=== PATIENT | male | born 1955 | race Caucasian/White ===

== ENCOUNTER → 2018-11-25 | Outpatient (REF) ==
--- NOTE | 2018-11-25 17:58 | REP ---
PARTIAL LUMBAR SPINE, THREE VIEWS: HISTORY: Degenerative disc disease. There is no acute fracture. The lumbar intervertebral discs are decreased in height consistent with disc degeneration. Osteophytes are present throughout the lumbar spine. There is sclerosis of the L4-5 and L5-S1 facets. There are 4 mm of grade 1 spondylolisthesis of L4 on 5. IMPRESSION:Degenerative change as described above. Electronically Signed by Krystian Cain MD 11/26/2018 08:25 A
--- NOTE | 2018-11-25 19:45 | REP ---
REASON: Disability determination. PRIORS: None. FINDINGS: Three views of the shoulder were performed. The acromioclavicular and glenohumeral relationships are within normal limits. There is no acute fracture or destructive osseous lesion. Electronically Signed by Derik Ramey DO 11/26/2018 11:56 A
== END ==
LOC: M SMT 14:05
PROVIDERS: ATTEND Internal Medicine
DX: M51.36 Other intervertebral disc degeneration, lumbar region (principal); M51.37 Other intervertebral disc degeneration, lumbosacral region

== ENCOUNTER → 2018-12-05 | Outpatient (REF) | payer OTHER ==
[2018-12-05 14:51] LABS: RUBELLA IgG QUALITATIVE IMMUNE (IMMUNE)
[2018-12-06 10:37] LABS: MUMPS VIRUS IgG ANTIBODY >300.0 AU/mL (Immune >10.9)
== END ==
LOC: M LAB REF 13:26
PROVIDERS: ATTEND Internal Medicine
DX: Z11.59 Encounter for screening for other viral diseases (principal)

== ENCOUNTER → 2019-05-11 | Outpatient (CLI) | payer MEDICARE, OTHER | LOC: M PAIN 10:15 | PROVIDERS: ATTEND Family Medicine | DX: M46.1 Sacroiliitis, not elsewhere classified (principal); E11.9 Type 2 diabetes mellitus without complications; Z86.59 Personal history of other mental and behavioral disorders; G47.00 Insomnia, unspecified; Z88.8 Allergy status to other drugs, medicaments and biological substances; Z91.040 Latex allergy status; E66.01 Morbid (severe) obesity due to excess calories; Z68.41 Body mass index [BMI] 40.0-44.9, adult; Z79.82 Long term (current) use of aspirin; Z79.84 Long term (current) use of oral hypoglycemic drugs; Z79.899 Other long term (current) drug therapy ==

== ENCOUNTER → 2019-06-24 | Outpatient (CLI) | payer MEDICARE, OTHER ==
[~2019-06-24] MED LIST: BUPIVACAINE HCL 0.25% 30 ML VIAL As Ordered ONE; ISOVUE-M 300 61% 15ML VIAL (Q9967) As Ordered ONE; LIDOCAINE 1% SDV INJ 30 ML VIAL As Ordered ONE; TRIAMCINOLONE ACETONIDE SUSP 40 MG/ML VIAL (J3301) As Ordered ONE; diazePAM 5 MG TAB As Ordered ONE; diphenhydrAMINE 25 MG CAP As Ordered ONE; oxyCODONE 5MG TAB As Ordered ONE
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
== END ==
LOC: M PAIN 09:30
PROVIDERS: ATTEND Anesthesiology
DX: M46.1 Sacroiliitis, not elsewhere classified (principal); M53.3 Sacrococcygeal disorders, not elsewhere classified; G89.29 Other chronic pain; R00.0 Tachycardia, unspecified; E11.9 Type 2 diabetes mellitus without complications; Z86.59 Personal history of other mental and behavioral disorders; G47.00 Insomnia, unspecified; Z88.8 Allergy status to other drugs, medicaments and biological substances; Z91.040 Latex allergy status; E66.01 Morbid (severe) obesity due to excess calories; Z68.41 Body mass index [BMI] 40.0-44.9, adult; Z79.82 Long term (current) use of aspirin; Z79.84 Long term (current) use of oral hypoglycemic drugs; Z79.899 Other long term (current) drug therapy

== ENCOUNTER → 2019-06-29 | Outpatient (CLI) | payer MEDICARE, OTHER ==
[~2019-06-29] MED LIST changes: -diphenhydrAMINE 25 MG CAP As Ordered ONE
--- NOTE | 2019-06-29 12:25 | REP ---
SI joint series: Seven views. History: Injection procedure for pain. 1 minute 24 seconds of fluoroscopy time is reported. Findings: A sequence of seven last image hold fluoroscopically obtained spot radiographs document needle position and contrast injection associated with injection procedure. Electronically Signed by Geovanni Jacobo MD 06/29/2019 12:17 P
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
== END ==
LOC: M PAIN 08:30
PROVIDERS: ATTEND Anesthesiology
DX: M46.1 Sacroiliitis, not elsewhere classified (principal); E11.9 Type 2 diabetes mellitus without complications; Z86.59 Personal history of other mental and behavioral disorders; G47.00 Insomnia, unspecified; Z88.8 Allergy status to other drugs, medicaments and biological substances; Z91.040 Latex allergy status; E66.01 Morbid (severe) obesity due to excess calories; Z68.41 Body mass index [BMI] 40.0-44.9, adult; Z79.82 Long term (current) use of aspirin; Z79.84 Long term (current) use of oral hypoglycemic drugs; Z79.899 Other long term (current) drug therapy
CPT/HCPCS: G0260; J3301; Q9967

== ENCOUNTER → 2020-02-09 | Outpatient (REF) | payer MEDICARE, OTHER ==
[~2020-02-09] MED LIST changes: +ASPI-1 PO; +B6 PO; -BUPIVACAINE HCL 0.25% 30 ML VIAL As Ordered ONE; +FOLI1TAB11 PO; +GLIM2TAB4 PO; -ISOVUE-M 300 61% 15ML VIAL (Q9967) As Ordered ONE; -LIDOCAINE 1% SDV INJ 30 ML VIAL As Ordered ONE; +LIPI20TA PO; +LUNE3TAB36 PO; +MELO15TA28 PO; +METF-838 PO; +METF500T13 PO; +MULT1TAB7 PO; +PERC5TAB12 PO; +PREG50CA PO; +TRAM1CAP15 PO; +TRAM50TA2 PO; -TRIAMCINOLONE ACETONIDE SUSP 40 MG/ML VIAL (J3301) As Ordered ONE; +WELLTAB38 PO; +XARE10TA PO; -diazePAM 5 MG TAB As Ordered ONE; -oxyCODONE 5MG TAB As Ordered ONE
[2020-02-09 14:56] LABS: INR 0.94; PROTHROMBIN TIME 12.3 SECONDS (11.8-14.0)
== END ==
LOC: M LAB REF 12:11
PROVIDERS: ATTEND Internal Medicine
DX: Z01.810 Encounter for preprocedural cardiovascular examination (principal); Z79.84 Long term (current) use of oral hypoglycemic drugs

== ENCOUNTER → 2020-02-10 | Outpatient (CLI) | payer MEDICARE, OTHER ==
[2020-02-10 17:12] LABS: INR 0.99; PROTHROMBIN TIME 12.8 SECONDS (11.8-14.0)
--- NOTE | 2020-02-11 06:22 | REP ---
TWO-VIEW CHEST: REASON: Preoperative evaluation. COMPARISON: 06/05/2017 FINDINGS: The superior mediastinal structures are midline. The cardiac silhouette is unremarkable in size, shape, and position. The diaphragmatic surfaces of the lungs are regular, and the costophrenic angles are clear. The pulmonary johnson are clear. The imaged osseous structures are intact. No significant change from the prior exam. IMPRESSION: There is no acute cardiopulmonary disease. Electronically Signed by Derik Ramey DO 02/11/2020 04:52 P
== END ==
LOC: M LAB 15:20
PROVIDERS: ATTEND Orthopaedic Surgery
DX: M16.12 Unilateral primary osteoarthritis, left hip (principal)

== ENCOUNTER → 2020-02-12 | Outpatient (CLI) | payer MEDICARE, OTHER | LOC: M LABSMTC 10:53 | PROVIDERS: ATTEND Anesthesiology | DX: Z01.818 Encounter for other preprocedural examination (principal); Z11.59 Encounter for screening for other viral diseases ==

== ENCOUNTER 2020-02-15 07:27 | Inpatient (IN) | payer MEDICARE, OTHER ==
--- NOTE | 2020-02-11 09:16 | HPE ---
DATE OF ADMISSION: 02/15/2020 CHIEF COMPLAINT: Left hip pain. HISTORY OF PRESENT ILLNESS: Norris is a pleasant 65-year-old male with progressively worsening left hip pain and stiffness. He has failed to improve with conservative treatment. He has elected for surgery for his continued symptoms. He has pain with weightbearing activities and his activities of daily living. MRI of the left hip showed significant avascular necrosis (AVN) of the femoral head. He has consented for a left total hip arthroplasty by Dr. Haroon Seaman. Medical optimization was performed by Dr. Childs. ALLERGIES: DILANTIN and LATEX. CURRENT MEDICATIONS: - Amaryl 2 mg - folic acid supplement - Lipitor 20 mg a day - Lunesta 3 mg at night - Lyrica 50 mg one by mouth three times a day - metformin HCl ER 2000 mg two by mouth daily - multivitamin - tizanidine 4 mg one by mouth three times a day - tramadol 50 mg one every 12 hours as needed - vitamin B complex one by mouth every day - Wellbutrin SR 150 mg per day PAST MEDICAL HISTORY: Includes diabetes, anxiety and depression, and insomnia. PAST SURGICAL HISTORY: C4-T2 spinal fusion, left facial fracture, and bilateral carpal tunnel. 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 FAMILY HISTORY: Is noncontributory. REVIEW OF SYSTEMS: Norris denies chest pain, heart palpitations, cough, wheezing, difficulty breathing, and shortness of breath. He denies abdominal pain, nausea, vomiting, diarrhea, or constipation. He denies recent upper respiratory infection or urinary tract infection symptoms. He does complain of persistent pain in the left hip. PHYSICAL EXAMINATION: General: He is well-nourished, well-developed in mild distress, alert male patient who ambulates with a significant limp favoring the left lower extremity. He is using a single-leg cane. Vital signs: He is 6 feet 5 inches tall, weighs 195 pounds, with a temperature of 96.7, blood pressure 126/76, pulse of 64, and respirations of 18. Neck was supple without adenopathy or jugular venous distention. Lungs were clear to auscultation without rales or wheeze. Heart: Regular rate and rhythm. Abdomen: Bowel sounds were present. Extremities: Examination of the hip revealed intact skin. He had decreased internal and external rotation due to pain and stiffness. The limb is neurovascularly intact. LABORATORY DATA: Sodium 140, potassium 4.2, glucose 88, BUN 25, creatinine 1.0. Sedimentation rate was 3, and CBC was within normal limits. His chest x-ray is going to be performed later today. His electrocardiogram (EKG) showed normal sinus rhythm. 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 PLAN: Consented for a left total hip arthroplasty by Dr. Haroon Seaman.
[~2020-02-15] VITALS: Ht 185.4 cm; Wt 88.4 kg
[2020-02-15] VITALS (7 sets, daily range): BP systolic 124–146; BP diastolic 80–96
[~2020-02-15 07:27] MED LIST changes: +LIDOCAINE 1% MDV 20ML VIAL SQ PRN; +LR 1,000 ML IV ONE; -PERC5TAB12 PO; -XARE10TA PO; +ceFAZolin SOD 2 GM in IV 1 EA IV ONE
[2020-02-15] MEDS ORDERED: MIDAZOLAM INJ 2MG/2ML VIAL (J2250 PER 1MG) As Ordered ONE (08:16)
[2020-02-15] MEDS ORDERED: fentaNYL 100 MCG/2 ML INJECTION (J3010) As Ordered ONE (08:16)
[2020-02-15] MEDS ORDERED: ACETAMINOPHEN 1000MG 100ML IV BTL (OFIRMEV) (J0131 PER 10MG) As Ordered ONE (08:17)
[2020-02-15] MEDS ORDERED: PHENYLephrine HCL 500 MCG/5 ML (100MCG/ML) SYRINGE (J2370) As Ordered ONE (08:17)
[2020-02-15] MEDS ORDERED: LIDOCAINE 2% 100MG/5ML SDV (FOR ANES.) As Ordered ONE (08:17)
[2020-02-15] MEDS ORDERED: ePHEDrine SULFATE 25 MG/5 ML(5MG/ML) SYRINGE As Ordered ONE (08:17)
[2020-02-15] MEDS ORDERED: propofoL 500 MG/50 ML VIAL As Ordered ONE (08:17)
[2020-02-15] MEDS ORDERED: TRANEXAMIC ACID 100 MG/ML 10ML VIAL As Ordered ONE (09:39)
[2020-02-15] MEDS ORDERED: EPINEPHrine INJ 1 MG/ML 1ML AMP As Ordered ONE (09:40)
[2020-02-15] MEDS ORDERED: BUPIVACAINE LIPOSOME/PF 1.3% 20ML VIAL (13.3MG/ML)(EXPAREL)(C9290 PER1MG) As Ordered ONE (09:40)
[2020-02-15] MEDS ORDERED: ceFAZolin 1GM VIAL (J0690 PER 500MG) As Ordered ONE (09:40)
--- NOTE | 2020-02-15 10:45 | IPN ---
DATE: 02/15/2020 Patient seen and examined. He had no further significant questions today about the process. He is aware of the nature of the procedure and the risks of bleeding, infection, damage to nerves, vessels, persistent pain, wear loosening, dislocation, leg length inequality, blood clots, medical problems, , among others. We anticipate doing a left total hip arthroplasty with a [place] stem.
[2020-02-15] MEDS ORDERED: ONDANSETRON 4MG/2ML VIAL As Ordered ONE (10:48)
[2020-02-15] MEDS ORDERED: dexameTHASONE 4 MG/ML 1ML VIAL (J1100 PER 1MG) As Ordered ONE (10:48)
[2020-02-15] MEDS ORDERED: propofoL 200 MG/20 ML VIAL As Ordered ONE ×2 (11:05→11:15)
[2020-02-15] MEDS ORDERED: MORPHINE 4 MG/ML 1ML VIAL/SYRINGE (J2270) IV PRN (12:00)
[2020-02-15] MEDS ORDERED: MORPHINE 2 MG/ML 1ML VIAL (J2270) IV PRN (12:00)
[2020-02-15] MEDS ORDERED: ACETAMINOPHEN TAB 650MG DOSE (2X325MG) PO PRN (12:00)
[2020-02-15] MEDS ORDERED: METOCLOPRAMIDE INJ 10MG/2ML VIAL (J2765 PER 1) IV PRN (12:00)
[2020-02-15] MEDS ORDERED: MEPERIDINE INJ 25 MG/ML VIAL (J2175) IV PRN (12:00)
[2020-02-15] MEDS ORDERED: PERCOCET 5MG/325MG TAB PO PRN (12:00)
[2020-02-15] MEDS ORDERED: ONDANSETRON 4MG/2ML VIAL IV PRN ×2 (12:00)
[2020-02-15] MEDS ORDERED: fentaNYL 100 MCG/2 ML INJECTION (J3010) IV PRN (12:00)
[2020-02-15] MEDS ORDERED: LR 1,000 ML IV SCH ×2 (12:00)
[2020-02-15] MEDS ORDERED: DEXTROSE 50% 50 ML SYRINGE IV PRN (12:15)
[2020-02-15] MEDS ORDERED: GLUCAGON INJ 1MG VIAL SC PRN (12:15)
[2020-02-15] MEDS ORDERED: GLUCOSE 4GM CHEW TABLET PO PRN (12:15)
[2020-02-15] MEDS: PERCOCET 5MG/325MG TAB PO PRN ×2 (14:24→20:22)
--- NOTE | 2020-02-15 15:21 | REP ---
REASON: Postop left THR. The femoral and acetabular components of the total hip prosthesis is well seen and well approximated. The alignment is near anatomical. There is expected postoperative soft tissue swelling. There is a lateral skin stable line placed. IMPRESSION: Status post THR as described above. Electronically Signed by Derik Ramey DO 02/15/2020 05:14 P
--- NOTE | 2020-02-15 16:22 | HPEPDOC ---
[facility] Medical History & Physical Date of Admission Feb 15, 2020 Date of Service: Feb 15, 2020 Attending Physician: OLGA AMARO MD History and Physical Chief complaint: s/p L total hip arthroplasty History of Present Illness: 65-year-old M with a history of diabetes, anxiety and depression and worsening left hip pain and stiffness who was admitted s/p LTHA by Dr. Haroon Seaman. He otherwise reports no physical complaints at this time, except for L hip post surgical pain that is well controlled at this time. ROS: 10 point ROS was negative except for L hip pain that is well controlled at this time while supine. PAST MEDICAL HISTORY: -DM2 -Anxiety -Depression -Insomnia -Avascular necrosis of L hip PAST SURGICAL HISTORY: -C4-T2 spinal fusion -History of left facial fracture -bilateral carpal tunnel release SOCIAL HISTORY: -Retired physician -Nonsmoker -Rare alcohol -No illicit drugs FAMILY HISTORY: Noncontributory. PHYSICAL EXAMINATION: Vitals: HDS, see below General: Well developed, well nourished, NAD Neck: Supple without adenopathy or JVD Lungs: CTAB, no wheezing, rales or rhonchi Heart: RRR, no m/r/g Abdomen: Normoactive bowel sounds, soft, NTND Extremities: WWP, no LE edema, 2+ DP pulses Neuro: CN 2-12 intact, speech clear, moving all extremities with L hip deferred s/p surgery LABORATORY DATA: Preop labs: Na 140, K 4.2, BUN 25, Cr 1.0, CBC was reported to have been normal Assessment: 65-year-old M with a history of diabetes, anxiety and depression and worsening left hip pain and stiffness who was admitted s/p LTHA by Dr. Haroon Seaman. s/p LTHA: -Pain and DVT ppx per orthopedics team -PT/OT DM2: -restart glimepiride, continue holding metformin for now -Discussed with him that he would like his diet liberalized so that he can eat fruit. His a1c is ~6.4 and would like to not have frequent fingersticks so will defer to daily BMP -Regular diet HLD: -continue home lipitor 40 daily Depression: -continue home bupropion DVT ppx: xarelto per orthopedic surgery team Vital Signs Vital Signs Date Time Temp Pulse Resp B/P (MAP) Pulse Ox O2 Delivery O2 Flow Rate FiO2 02/15/20 13:14 97.5 67 18 128/80 (96) 95 Room Air Laboratory Data Labs 24H Laboratory Tests 2 02/15/20 08:31: Bedside Glucose (Misc Panel) 129H 02/15/20 12:48: Bedside Glucose (Misc Panel) 147H Home Medications Scheduled Aspirin (Aspirin) 325 Mg Tablet, 650 MG PO DAILY Atorvastatin Calcium (Lipitor) 20 Mg Tablet, 40 MG PO QHS Bupropion HCl (Wellbutrin Xl) 150 Mg Tab.er.24h, 450 MG PO QAM Eszopiclone (Lunesta) 3 Mg Tablet, 3 MG PO QHS Folic Acid (Folic Acid) 1 Mg Tablet, 1 MG PO DAILY Glimepiride (Glimepiride) 2 Mg Tablet, 2 MG PO BID Meloxicam (Meloxicam) 15 Mg Tablet, 7.5 MG PO QAM Metformin HCl (Metformin HCl ER) 500 Mg Tab.er.24h, 1,500 MG PO QAM Metformin HCl (Metformin HCl) 500 Mg Tablet, 1,000 MG PO QPM Multivitamin with Minerals (Multiple Vitamin) 1 Each Tablet, 1 TAB PO DAILY Pregabalin (Lyrica) 50 Mg Capsule, 50 MG PO BID Tramadol Hcl (Tramadol HCl ER) 100 Mg Cpbp.25.75, 100 MG PO QAM [B6] , 1 CAP PO DAILY Scheduled PRN Tramadol HCl (Tramadol HCl) 50 Mg Tablet, 50 MG PO BIDP PRN for PAIN Allergies Coded Allergies: phenytoin (Verified Allergy, Severe, 02/10/20) latex (Verified Allergy, Intermediate, RASH, 02/10/20) A-FIB/CHADSVASC A-FIB History Current/History of A-Fib/PAF?: No Current PO Anticoag Therapy: No Age/Risk Factor Scoring CHADSVASC: CHADSVASC Response (Comments) Value Age Risk Factor Age 65-74 years old 1 Gender Risk Factor Male 0 Hx of CHF No 0 Hx of HTN No 0 Hx of Stroke/TIA/or VTE No 0 Hx of Diabetes Yes 1 Hx of Vascular Disease No 0 Total 2 Treatment Treatment ordered: NONE Reason Anticoagulant not given: Not indicated/[id number] OLGA AMARO MD Feb 15, 2020 14:41
[2020-02-15] MEDS ORDERED: HumaLOG INSULIN (NovoLOG) PER UNIT SC SCH ×2 (17:30→21:00)
[2020-02-15] MEDS: GLIMEPIRIDE 2 MG TAB PO SCH (17:58)
[2020-02-15] MEDS: ceFAZolin SOD 2 GM in IV 1 EA IV SCH (17:59)
[2020-02-15] MEDS: ATORVASTATIN 20 MG TAB PO SCH (20:21)
[2020-02-16] MEDS ORDERED: RAMELTEON 8 MG TAB (ROZEREM) PO PRN (00:15)
[2020-02-16] MEDS: ceFAZolin SOD 2 GM in IV 1 EA IV SCH (01:11)
[2020-02-16 01:44] VITALS: BP 131/82
[2020-02-16] MEDS: PERCOCET 5MG/325MG TAB PO PRN ×3 (02:34→18:49)
[2020-02-16 06:28] VITALS: BP 131/80
[2020-02-16 06:43] LABS: HEMATOCRIT 32.1 % (42.0-52.0); HEMOGLOBIN 10.8 g/dl (13.5-17.5); MEAN CORPUSCULAR HEMOGLOBIN 31.9 pg (27.0-33.0); MEAN CORPUSCULAR HGB CONC 33.6 g/dl (32.0-36.5); MEAN CORPUSCULAR VOLUME 94.7 fl (80.0-96.0); PLATELET COUNT, AUTOMATED 196 10^3/uL (150-450); RED BLOOD COUNT 3.39 10^6/uL (4.30-6.10); WHITE BLOOD COUNT 7.7 10^3/uL (4.0-10.0)
[2020-02-16] MEDS: tiZANidine 4 MG TAB PO SCH ×3 (06:53→20:56)
[2020-02-16] MEDS ORDERED: XARE10TA PO (07:00)
[2020-02-16] MEDS ORDERED: PERC5TAB12 PO (07:00)
[2020-02-16 07:11] LABS: BLOOD UREA NITROGEN 17 MG/DL (7-18); CALCIUM LEVEL 8.1 MG/DL (8.8-10.2); CARBON DIOXIDE LEVEL 29 MEQ/L (21-32); CHLORIDE LEVEL 103 MEQ/L (98-107); GLOMERULAR FILTRATION RATE > 60.0 (>49); GLUCOSE, FASTING 141 MG/DL (70-100); POTASSIUM SERUM 3.4 MEQ/L (3.5-5.1); SODIUM LEVEL 137 MEQ/L (136-145)
[2020-02-16] MEDS: MIRALAX *UNIT DOSE* 17GM PACKET PO SCH (07:26)
[2020-02-16] MEDS: buPROPion **XL** TABLET 150MG (WELLBUTRIN XL) PO SCH (07:27)
[2020-02-16] MEDS: GLIMEPIRIDE 2 MG TAB PO SCH ×2 (07:27→17:10)
[2020-02-16] MEDS: FOLIC ACID 1 MG TAB PO SCH (07:27)
[2020-02-16] MEDS: MOM 30ML SUSPENSION UDC PO SCH (07:27)
[2020-02-16] MEDS: PREGABALIN 50 MG CAP (LYRICA) PO SCH ×2 (07:28→20:56)
[2020-02-16] MEDS: MORPHINE 15 MG SA TAB PO SCH ×2 (07:28→17:10)
[2020-02-16 14:00] VITALS: BP 125/76
[2020-02-16] MEDS: RIVAROXABAN 10 MG TAB (XARELTO) PO SCH (17:10)
[2020-02-16] MEDS ORDERED: POTASSIUM CHLORIDE 10 MEQ SR TABLET PO ONE (17:15)
--- NOTE | 2020-02-16 17:15 | IPNPDOC ---
Text Note Date of Service The patient was seen on 02/16/20. NOTE SUBJECTIVE: complains of left hip pain as expected at eh site of the surgery controlled with current pain regimen. He has not been out of bed yet as he is waiting his son to bring him his special boots. 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 Haroon Seaman. s/p LTHA: Pain control and DVT ppx per orthopedics team PT/OT DM2: restart glimepiride, continue holding metformin for now Regular diet HLD: continue home lipitor 40 daily Depression: continue home bupropion Hypokalemia replaced DVT ppx: xarelto per orthopedic surgery team VS,Kathy, I+O VS, Kathy, I+O Laboratory Tests 02/16/20 06:24 Vital Signs Date Time Temp Pulse Resp B/P (MAP) Pulse Ox O2 Delivery O2 Flow Rate FiO2 02/16/20 14:00 97.8 89 17 125/76 (92) 97 Room Air I&O- Last 24 Hours up to 6 AM 02/16/20 05:59 Intake Total 3700 ml Output Total 2000 ml Balance 1700 ml ARMANDO ZURITA MD Feb 16, 2020 17:15
[2020-02-16] MEDS: ATORVASTATIN 20 MG TAB PO SCH (20:56)
[2020-02-16 22:00] VITALS: BP 131/75
--- NOTE | 2020-02-17 03:09 | REP ---
REASON: Assess a clinically palpable mass in the leg. Ultrasonographic evaluation over a clinically palpable mass left leg posteriorly and medially shows no cystic or solid masses. A negative ultrasound examination does not obviate further anatomical imaging with MRI if a palpable mass is of clinical concern. Electronically Signed by Derik Ramey DO 02/17/2020 12:40 P
[2020-02-17] MEDS: PERCOCET 5MG/325MG TAB PO PRN ×3 (03:20→21:54)
[2020-02-17 06:00] VITALS: BP 132/73
[2020-02-17] MEDS: MORPHINE 15 MG SA TAB PO SCH ×2 (06:09→17:29)
[2020-02-17 06:13] LABS: HEMOGLOBIN 10.1 g/dl (13.5-17.5); MEAN CORPUSCULAR HGB CONC 33.7 g/dl (32.0-36.5); MEAN CORPUSCULAR VOLUME 94.9 fl (80.0-96.0); PLATELET COUNT, AUTOMATED 178 10^3/uL (150-450); RED BLOOD COUNT 3.16 10^6/uL (4.30-6.10); WHITE BLOOD COUNT 7.7 10^3/uL (4.0-10.0)
[2020-02-17] MEDS: MOM 30ML SUSPENSION UDC PO SCH (07:52)
[2020-02-17] MEDS: GLIMEPIRIDE 2 MG TAB PO SCH ×2 (07:52→17:29)
[2020-02-17] MEDS: FOLIC ACID 1 MG TAB PO SCH (07:52)
[2020-02-17] MEDS: PREGABALIN 50 MG CAP (LYRICA) PO SCH ×2 (07:52→20:11)
[2020-02-17] MEDS: MIRALAX *UNIT DOSE* 17GM PACKET PO SCH (07:52)
[2020-02-17] MEDS: tiZANidine 4 MG TAB PO SCH ×3 (07:53→20:11)
[2020-02-17] MEDS: buPROPion **XL** TABLET 150MG (WELLBUTRIN XL) PO SCH (07:53)
[2020-02-17 14:00] VITALS: BP 112/73
--- NOTE | 2020-02-17 15:11 | IPNPDOC ---
Text Note Date of Service The patient was seen on 02/17/20. NOTE SUBJECTIVE: No complaints this am when laying in bed no pain. But has severe muscle spasms when moving in or out of bed. 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 Haroon Seaman. s/p LTHA: Pain control and DVT ppx per orthopedics team PT/OT DM2: restart glimepiride, continue holding metformin for now Regular diet HLD: continue home lipitor 40 daily Depression: continue home bupropion Hypokalemia replaced DVT ppx: xarelto per orthopedic surgery team VS,Fishbone, I+O VS, Fishbone, I+O Laboratory Tests 02/17/20 06:00 Vital Signs Date Time Temp Pulse Resp B/P (MAP) Pulse Ox O2 Delivery O2 Flow Rate FiO2 02/17/20 13:11 19 02/17/20 06:00 98.4 86 132/73 (92) 96 Room Air I&O- Last 24 Hours up to 6 AM 02/17/20 06:59 Intake Total 2190 ml Output Total 1075 ml Balance 1115 ml ARMANDO ZURITA MD Feb 17, 2020 15:11
[2020-02-17] MEDS: RIVAROXABAN 10 MG TAB (XARELTO) PO SCH (17:29)
[2020-02-17] MEDS: ATORVASTATIN 20 MG TAB PO SCH (20:11)
[2020-02-17 22:00] VITALS: BP 113/73
[2020-02-18] MEDS ORDERED: XARE10TA PO (05:58)
[2020-02-18] MEDS: MORPHINE 15 MG SA TAB PO SCH (06:05)
[2020-02-18 06:08] VITALS: BP 116/69
[2020-02-18 07:18] LABS: HEMATOCRIT 26.7 % (42.0-52.0); HEMOGLOBIN 9.2 g/dl (13.5-17.5); MEAN CORPUSCULAR HEMOGLOBIN 32.6 pg (27.0-33.0); MEAN CORPUSCULAR HGB CONC 34.5 g/dl (32.0-36.5); MEAN CORPUSCULAR VOLUME 94.7 fl (80.0-96.0); PLATELET COUNT, AUTOMATED 198 10^3/uL (150-450); RED BLOOD COUNT 2.82 10^6/uL (4.30-6.10); WHITE BLOOD COUNT 6.7 10^3/uL (4.0-10.0)
[2020-02-18] MEDS: GLIMEPIRIDE 2 MG TAB PO SCH (08:18)
[2020-02-18] MEDS: PREGABALIN 50 MG CAP (LYRICA) PO SCH (08:18)
[2020-02-18] MEDS: tiZANidine 4 MG TAB PO SCH ×2 (08:18→15:05)
[2020-02-18] MEDS: MOM 30ML SUSPENSION UDC PO SCH (08:20)
[2020-02-18] MEDS: MIRALAX *UNIT DOSE* 17GM PACKET PO SCH (08:20)
[2020-02-18] MEDS: FOLIC ACID 1 MG TAB PO SCH (08:20)
[2020-02-18] MEDS: buPROPion **XL** TABLET 150MG (WELLBUTRIN XL) PO SCH (08:21)
[2020-02-18] MEDS: PERCOCET 5MG/325MG TAB PO PRN ×2 (08:22→15:05)
[2020-02-18 14:00] VITALS: BP 111/70
--- NOTE | 2020-02-23 10:38 | RO ---
DATE OF PROCEDURE: 02/15/2020 PREOPERATIVE DIAGNOSIS: Left hip avascular necrosis (AVN) and arthritis. POSTOPERATIVE DIAGNOSIS: Left hip avascular necrosis (AVN) and arthritis PROCEDURE PERFORMED: Left total hip arthroplasty using a [place] size 7 standard, 54 acetabular component 36 +5 ball. SURGEON: Dr. Haroon Seaman. SECURITY DELIVERY SPECIALIST: Toro Woodson PA-C. ANESTHESIA: Spinal ESTIMATED BLOOD LOSS: 200 mL COMPLICATIONS: None. INDICATIONS: 65-year-old has had gradually worsening left hip pain. He wished to ahead with a hip replacement. He understood the nature and risks associated with that. He had some significant collapse on his x-ray. DESCRIPTION OF PROCEDURE: The patient was taken to the operating room and placed the right lateral decubitus position on the [place] positioner. All areas were padded appropriately. The left hip was prepped and draped in usual sterile fashion. A time-out was performed. I then created longitudinal incision over the lateral aspect the hip and sharp dissection was carried down through subcutaneous tissue until the fascia was encountered. This is incised longitudinally with a 15 blade and controlled hemostasis with cautery. I then divided the anterior 40% of the abductor and gradually externally rotated the femur as we exposed the proximal femur. Controlled hemostasis with cautery. I then dislocated the hip with the data control assistant's help and put the leg in the bag. I used the canal initiating reamer, the canal finding reamer and the lateralizing reamer followed by sequential broaching up to a size 7 which had a good fit and fill. This is what we had templated to. I then cut the neck at about three-quarters of a fingerbreadth up from the lesser trochanter. The acetabulum was then prepared. The anterior and posterior retractors were placed. He had a significant amount of soft tissue particularly in the inferior acetabulum that was removed and medially there was some soft tissue that was removed. It was evident that I could medialized him several millimeters, which I think was indicated because acetabulum appeared quite shallow. I then sequentially reamed and was able to medialized some and reamed up to a size 53. Then made good bleeding bone. I did bone graft assist as well. I irrigated multiple times and then controlled hemostasis and impacted in the size 54 acetabular component. I did use a cup with holes just in the event that I needed to add a screw. Once I seated the cup, it was very solid and was down to the floor so I did not need to use any additional screws. I then impacted in the polyethylene and again, making sure I was happy with the position everything. I directed attention back to the femur and sequentially broached up to a size 7, which countersunk slightly so I did use a calcar planer to smoothed this down. I did not feel like I would be able to get the 8 in. Excellent fit and fill was noted. I then tried various head and neck combinations and the +5/36 ball seemed to be the most appropriate. There was excellent stability in flexion, internal rotation, extension, external rotation and minimal shuck in full extension. There were some small osteophytes anteriorly that I did remove as well once the trial component was removed. But very pleased with the soft tissue balance and position of the hip. I did want to add some additional length because he was short on this side preoperatively. It appeared as though I did this successfully and again the soft tissue tension was appropriate. I removed the trial instrumentation and irrigated, impacted in the actual stem size 7 standard [place] and made sure it was well seated. There were no fractures noted. I then placed the +5/36 ball, impacted this in place and made sure it was seated. We then reduced the hip put the hip through range of motion. Again I was very pleased with stability and position of the components. There was no instability. I had irrigated multiple times. I again irrigated copiously at this point I placed TXA in the deep portion of the wound and started to close the minimus. Then irrigated again, repaired the abductor with #1-0 Vicryl suture was several stitches being placed through the bone. The repair was excellent. I irrigated, closed the fascia with #1-0 Vicryl suture and running Stratafix, subcu was closed with #2-0 Vicryl and the skin with ayad. Sterile dressing was applied. He was taken to recovery room in stable condition. There were no known complications. The data control assistant was instrumental in holding retractors and assisting in reducing and dislocating the hip and assisting in wound closure.
== END 2020-02-18 16:15 | disposition home health service (06) | DRG 470 ==
LOC: M OR 07:27 → M MS5PR 12:35
PROVIDERS: ADMIT Orthopaedic Surgery; ATTEND Orthopaedic Surgery
PROC: 0SRB02Z Replacement of Left Hip Joint with Metal on Polyethylene Synthetic Substitute, Open Approach (ICD-10-PCS; principal; 2020-02-15 09:30)
DX: M16.12 Unilateral primary osteoarthritis, left hip (principal); M87.052 Idiopathic aseptic necrosis of left femur; Z11.59 Encounter for screening for other viral diseases; E11.9 Type 2 diabetes mellitus without complications; F41.9 Anxiety disorder, unspecified; F32.9 Major depressive disorder, single episode, unspecified; G47.00 Insomnia, unspecified; Z79.84 Long term (current) use of oral hypoglycemic drugs; Z79.899 Other long term (current) drug therapy; Z79.82 Long term (current) use of aspirin; Z88.8 Allergy status to other drugs, medicaments and biological substances; Z91.040 Latex allergy status

== ENCOUNTER → 2020-02-23 | Outpatient (REF) | payer MEDICARE, OTHER ==
[~2020-02-23] MED LIST changes: -LIDOCAINE 1% MDV 20ML VIAL SQ PRN; -LR 1,000 ML IV ONE; +PERC5TAB12 PO; +XARE10TA PO; -ceFAZolin SOD 2 GM in IV 1 EA IV ONE
[2020-02-23 11:15] LABS: HEMATOCRIT 31.4 % (42.0-52.0); HEMOGLOBIN 10.5 g/dl (13.5-17.5); MEAN CORPUSCULAR HEMOGLOBIN 31.5 pg (27.0-33.0); MEAN CORPUSCULAR HGB CONC 33.4 g/dl (32.0-36.5); MEAN CORPUSCULAR VOLUME 94.3 fl (80.0-96.0); PLATELET COUNT, AUTOMATED 545 10^3/uL (150-450); RED BLOOD COUNT 3.33 10^6/uL (4.30-6.10); WHITE BLOOD COUNT 8.4 10^3/uL (4.0-10.0)
== END ==
LOC: M SHH 11:01
PROVIDERS: ATTEND Internal Medicine
DX: R00.0 Tachycardia, unspecified (principal)

== ENCOUNTER → 2020-06-24 | Outpatient (CLI) | payer SELFPAY | LOC: M LABSMTC 13:34 | PROVIDERS: ATTEND Pediatrics | DX: Z20.828 Contact with and (suspected) exposure to other viral communicable diseases (principal) ==

== ENCOUNTER → 2022-01-10 | Outpatient (CLI) | payer MEDICARE, OTHER | LOC: M RAD 15:28 | PROVIDERS: ATTEND Psychiatry & Neurology Neurology | DX: M48.062 Spinal stenosis, lumbar region with neurogenic claudication (principal) ==

== ENCOUNTER → 2022-04-01 | Outpatient (CLI) | payer MEDICARE, OTHER ==
[~2022-04-01] MED LIST changes: +AMLO1TAB24 PO; +ATOR40TA75; +B-650TAB2 PO; +ZETI10TA16
== END ==
LOC: M LABSMTC 10:18
PROVIDERS: ATTEND Anesthesiology
DX: Z01.812 Encounter for preprocedural laboratory examination (principal)

== ENCOUNTER 2022-04-05 06:43 | Day surgery (SDC) | payer OTHER ==
[~2022-04-05] VITALS: Ht 182.9 cm; Wt 95.7 kg
[~2022-04-05 06:43] MED LIST changes: +NS 1,000 ML IV ONE
[2022-04-05] MEDS ORDERED: propofoL 500 MG/50 ML VIAL As Ordered ONE ×2 (07:10→07:11)
[2022-04-05] MEDS ORDERED: LIDOCAINE 2% 100MG/5ML SDV (FOR ANES.) As Ordered ONE (07:14)
[2022-04-05] MEDS ORDERED: fentaNYL 100 MCG/2 ML INJECTION As Ordered ONE (07:15)
[2022-04-05 08:20] VITALS: BP 125/91
== END 2022-04-05 08:32 | disposition home or self-care (01) ==
LOC: M OPP 06:43
PROVIDERS: ATTEND Surgery
DX: Z12.11 Encounter for screening for malignant neoplasm of colon (principal); Z86.010 Personal history of colon polyps; D12.2 Benign neoplasm of ascending colon; K44.9 Diaphragmatic hernia without obstruction or gangrene; K29.60 Other gastritis without bleeding; K21.00 Gastro-esophageal reflux disease with esophagitis, without bleeding; F41.9 Anxiety disorder, unspecified; F32.9 Major depressive disorder, single episode, unspecified; E11.9 Type 2 diabetes mellitus without complications; I10 Essential (primary) hypertension; Z79.02 Long term (current) use of antithrombotics/antiplatelets; Z79.84 Long term (current) use of oral hypoglycemic drugs; Z79.899 Other long term (current) drug therapy; Z88.8 Allergy status to other drugs, medicaments and biological substances; Z91.040 Latex allergy status; Z87.442 Personal history of urinary calculi
CPT/HCPCS: 43239; 45385; 88305; J3010

== ENCOUNTER → 2023-02-28 | Outpatient (CLI) | payer MEDICARE, OTHER ==
[~2023-02-28] MED LIST changes: -NS 1,000 ML IV ONE
== END ==
LOC: M RAD 10:46
PROVIDERS: ATTEND Internal Medicine
DX: I65.23 Occlusion and stenosis of bilateral carotid arteries (principal)

== ENCOUNTER → 2023-06-24 | Outpatient (REF) | payer MEDICARE, OTHER ==
[~2023-06-24] MED LIST changes: +EZET10TA58; -LUNE3TAB36 PO; +LUNE3TAB50 PO; -ZETI10TA16
[2023-06-24 19:26] LABS: VITAMIN B12 LEVEL 514 PG/ML (211-911)
== END ==
LOC: M LAB REF 18:34
PROVIDERS: ATTEND Internal Medicine
DX: D51.9 Vitamin B12 deficiency anemia, unspecified (principal); Z11.59 Encounter for screening for other viral diseases; T61.781A Other shellfish poisoning, accidental (unintentional), initial encounter